=== PATIENT | female | born 2000 | race Caucasian/White ===

== ENCOUNTER 2018-07-05 09:41 | Emergency (ER) | payer OTHER, SELFPAY ==
[2018-07-05] VITALS (7 sets, daily range): BP systolic 123–131; BP diastolic 75–77; PULSE 58–71; RESP 16–18; TEMP 36.6; O2SAT 98–100; BMI 24.9
--- NOTE | 2018-07-05 09:55 | ED.RN ---
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 PT HAS SEVERE EATING DISORDER. PT PURGING. PT WORSTED WINDER STATES MULTIPLE FAMILY ISSUES. STATES PT WILL NOT FORMULATE A PLAN BECAUSE PT WILL THEN CARRY IT OUT SOON IT IS FORMULATED
[2018-07-05 10:21] LABS: Absolute Lymphocyte Count 0.98 X10^3/ul (0.83-4.51); Absolute Neutrophil Count 2.6 X10^3/uL (2.0-7.7); Basophil# 0.03 X10^3/uL; Basophil% 0.8 % (0-1); Eosinophil# 0.05 X10^3/uL; Eosinophils% 1.3 % (0-5); Hematocrit 39.5 % (37-47); Lymphocyte # 0.98 X10^3/ul (4.0); Lymphocyte % 24.9 % (19-41); Mean Corp Hgb Conc 32.9 g/gl (32-36); Mean Corpuscular Hgb 31.6 pg (27.0-32.0); Mean Corpuscular Volume 96.1 fL (81-99); Mean Platelet Vol. 8.8 fl (6.2-12.0); Monocyte# 0.32 X10^3/uL; Monocyte% 8.1 % (0-10); Neutrophil # 2.55 X10^3/uL (2.7-7.7); Neutrophil % 64.9 % (47-70); Platelet Count 346 K/mm3 (150-450); RBC Distribution Width SD 42.1 fl (35.1-43.9); Red Blood Count 4.11 M/mm3 (4.2-5.4); White Blood Count 3.9 K/mm3 (4.4-11.0)
[2018-07-05 10:25] LABS: POSITIVE COUNT NO; POSITIVE DIFFERENTIAL NO; POSITIVE MORPHOLOGY NO
[2018-07-05 10:43] LABS: Anion Gap 7 (5-15); BUN 8 mg/dL (7-18); BUN/Creat Ratio 11.1 RATIO (10-20); Calcium,Total 9.3 mg/dL (8.5-10.1); Chloride 107 mmol/L (98-107); Creatinine, Serum 0.72 mg/dL (0.55-1.02); EST Glomerular Filtration Rate 109 mL/min (>60); Est Glom Filt Rate - Afr Amer 132 mL/min (>60); Estimated Creatinine Clearance 107.63 ml/min; Glucose 108 mg/dL (74-106); Potassium 3.7 mmol/L (3.5-5.1); Sodium Level 140 mmol/L (136-145)
[2018-07-05 10:47] LABS: Alcohol, Blood (Medical)-Serum < 3.0 mg/dL
[2018-07-05 10:48] LABS: Pregnancy, Serum, hCG Quali. NEGATIVE Negative (0-9 Nonpreg)
[2018-07-05 11:16] LABS: Amphetamine Urine VISTA NEGATIVE (<1000 ng/mL); Barbiturate Urine VISTA NEGATIVE (< 200 ng/mL); Benzodiazepine Urine VISTA NEGATIVE (< 200 ng/mL); Cocaine Urine VISTA NEGATIVE (< 300 ng/mL); Ecstacy Urine VISTA NEGATIVE (< 500 ng/mL); Methadone Urine VISTA NEGATIVE (< 300 ng/mL); PCP Urine VISTA NEGATIVE (< 25 ng/mL); THC Urine VISTA NEGATIVE (< 50 ng/mL); Vista UDS pH Range 7
--- NOTE | 2018-07-05 11:21 | NURSING ---
SUZY, CRISIS, AWARE OF PATIENT
--- NOTE | 2018-07-05 12:17 | NURSING ---
CRISIS IN ROOM WITH PATIENT
--- NOTE | 2018-07-05 15:34 | ED.VISSUMM ---
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 She states that she has been increasingly depressed since yesterday and is having thoughts but denies a specific plan. She reports a history of an eating disorder and feels that this is getting somewhat worse. Physical Examination: She has a flat affect. Mood is depressed. Thought content is normal. She does appear to have good insight into her problem. Test Results: Medical screening labs within normal limits. Emergency Department Course and Treatment: Her wellness health coach arrived and provided further history at the bedside with her permission. She has been apparently increasingly depressed for several weeks and has a poor family support system. He is very concerned that she will complete suicide. She then reported further thoughts of suicide and divided much more information to the mental health professional here with crisis. We all agreed that she would benefit from inpatient psychiatric treatment at this time. He is agreeable to be transferred for treatment. Treatment Plan: Transfer to an inpatient psychiatric facility Disposition: Transfer, stable Impression: Initial encounter suicidal ideation, initial encounter major depression This note was generated with [employer] dictation software. It may contain incorrect words, spelling, and punctuation that were not noted in review of the chart prior to signing ED Disposition - Plan for ED Patient: Chief Complaint: Suicidal Referrals: Care Physician,No Primary [Primary Care Provider] -
--- OUTSIDE RECORDS SUMMARY | 2018-08-28 15:06 | XMS RPT_ITS ---
:2000 Author Organization OHIP Care Team Providers Name Role Phone Wyatt Archer Attending Unavailable Primay Care Physicia, No Primary Care Unavailable NADIYA PALMA JR Referring Unavailable NADIYA PALMA JR Attending Unavailable Tristan Malikate Admitting Unavailable Ursula Malik Attending Unavailable [facility] Primary Care Unavailable Wyatt Case Admitting Unavailable Wyatt Case Attending Unavailable [facility] Referring Unavailable [facility] Primary Care Unavailable Brie Escamilla, Dr. Juanito Ferro Attending Unavailable Brie Escamilla, Dr. Juanito Ferro Attending Unavailable Dr. Juanito Baird Jr Attending Unavailable Dr. Juanito Baird Jr Attending Unavailable Brie Escamilla, Dr. Juanito Ferro Attending Unavailable PROBLEMS PROBLEMS DATE TYPE CONDITION / CODE ATTENDING STATUS SOURCE 10/07/2017 Active Pain, unspecified NA Active [facility] / R52(ICD-10) [facility] [place] Repository PROCEDURES PROCEDURES No Procedure Records FoundRESULTS RESULTS EMERGENCY DEPARTMENT Observed: 07/05/2018 Status: F Source: [place] SUMMARY 3:36 PM REPOSITORY [facility] Medical Records Department [address] [place] [address] Emergency Department Summary 07/05/18 1534 MR#: [id number] Acct: [id number] Name: DARLENE MARTINEZ Rep #: [id number] : 2000 18 From: Josesito Archer MD PCP: Care Physician, No Primary Status: REG ER - ER Visit Summary Date of Service: 07/05/18 Chief Complaint: Suicidal ideation History of Present Illness: 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 She states that she has been increasingly depressed since yesterday and is having thoughts but denies a specific plan. She reports a history of an eating disorder and feels that this is getting somewhat worse. Physical Examination: She has a flat affect. Mood is depressed. Thought content is normal. She does appear to have good insight into her problem. Test Results: Medical screening labs within normal limits. Emergency Department Course and Treatment: Her men's basketball coach arrived and provided further history at the bedside with her permission. She has been apparently increasingly depressed for several weeks and has a poor family support system. He is very concerned that she will complete suicide. She then reported further thoughts of suicide and divided much more information to the mental health professional here with crisis. We all agreed that she would benefit from inpatient psychiatric treatment at this time. He is agreeable to be transferred for treatment. Treatment Plan: Transfer to an inpatient psychiatric facility Disposition: Transfer, stable Impression: Initial encounter suicidal ideation, initial encounter major depression This note was generated with [employer] dictation software. It may contain incorrect words, spelling, and punctuation that were not noted in review of the chart prior to signing ED Disposition - Plan for ED Patient: Chief Complaint: Suicidal Referrals: Care Physician,No Primary [Primary Care Provider] - What to do if you have Problems For any increased pain, shortness of breath, bleeding, nausea or vomiting, chest pain, or any unexpected problems, contact your Primary Care Provider. Call [facility] ([phone]) or report to the closest Emergency Room. Call 911 if necessary. 07/05/18 1536 <Electronically signed by Josesito Archer MD> Date Josesito Archer MD Cosigner Signature (If Indicated): Date CC: No Primary Care Physician URINE DRUG SCREEN Collected: 07/05/2018 Status: F Source: [place] ([place]) 11:00 AM REPOSITORY TYPE CODE TESTS RESULT OUT OF RANGE REFERENCE UNITS LAB L505.0075 TO BE Normal CONFIRMED Result Comment: CONFIRMATORY TESTING FOR ALL POSITIVE URINE DRUG SCREEN RESULTS WILL ONLY BE SENT OUT UPON PHYSICIAN ORDER. VISTA Urine Drug Screen methods provide only preliminary analytical test results. A more specific alternate chemical method must be used in order to obtain a confirmed analytical result. Gas chromatography/mass spectrometery (GC/MS) is the preferred confirmatory method. Clinical consideration and professional judgement should be applied to any drug of abuse test result, particularly when preliminary positive results are used. URINE TCA TESTING MUST BE ORDERED SEPARATELY. USE TEST MNEMONIC: [facility] LAB L505.5005 VISTA UDS PH 7 Normal LAB L505.5015 <1000 ng/mL AMPHETAMINES Normal NEGATIVE LAB L505.5025 < 200 ng/mL BARBITIURATES Normal NEGATIVE LAB L505.5035 < 200 ng/mL BENZODIAZIPINE Normal NEGATIVE LAB L505.5045 < 300 ng/mL COCAINE Normal NEGATIVE LAB L505.5055 < 500 ng/mL ECSTACY Normal NEGATIVE LAB L505.5065 < 300 ng/mL METHADONE Normal NEGATIVE LAB L505.5075 < 300 ng/mL OPIATES Normal NEGATIVE LAB L505.5085 < 25 ng/mL PCP Normal NEGATIVE LAB L505.5095 < 50 ng/mL THC Normal NEGATIVE Performed By: #### L505.5000 #### [facility] [address] [place], [place], [id number] CBC W/DIFF, AUTOMATED Collected: 07/05/2018 Status: F Source: [place] 10:12 AM REPOSITORY TYPE CODE TESTS RESULT OUT OF RANGE REFERENCE UNITS LAB L100.1000 4.4-11.0 K/mm3 Low WBC 3.9 LAB L100.1200 4.2-5.4 M/mm3 Low RBC 4.11 LAB L100.1300 12.0-15.0 g/dl Normal HGB 13.0 LAB L100.1400 37-47 % Normal HCT 39.5 LAB L100.1500 81-99 fL Normal MCV 96.1 LAB L100.1600 27.0-32.0 pg Normal MCH 31.6 LAB L100.1700 32-36 g/gl Normal MCHC 32.9 LAB L100.1810 11.6-14.6 % Normal RDW CV 12.0 LAB L100.1820 35.1-43.9 fl Normal RDW SD 42.1 LAB L100.1900 150-450 K/mm3 Normal PLT 346 LAB L100.2000 6.2-12.0 fl Normal MPV 8.8 LAB L100.2100 47-70 % Normal NEUT% 64.9 LAB L100.2200 19-41 % Normal LY% 24.9 LAB L100.2300 0-10 % Normal MONO% 8.1 LAB L100.2400 0-5 % Normal EO% 1.3 LAB L100.2500 0-1 % Normal BASO% 0.8 LAB L100.2550 0.0-0.9 % Normal IM GRAN % 0.000 Result Comment: IG% - Immature Granulocytes (promyelocytes, myelocytes and metamyelocytes) > 1% indicates that a LEFT SHIFT is Present. LAB L100.2620 2.0-7.7 X10 3/uL Normal Absolute Neut 2.6 LAB L100.2720 0.83-4.51 X10 3/ul Normal Absolute Lymph 0.98 Performed By: #### L100.0100 #### [facility] [place], [address] BASIC METABOLIC Collected: 07/05/2018 Status: F Source: [facility] PROFILE (BMP) 10:12 AM REPOSITORY TYPE CODE TESTS RESULT OUT OF RANGE REFERENCE UNITS LAB L501.0100 74-106 mg/dL High GLU 108 Result Comment: Fasting Glucose result from 100 to 125 mg/dL suggests IMPAIRED HOMEOSTASIS per A.D.A. criteria. Please note revised GLUCOSE reference range effective 2017. LAB L501.1000 7-18 mg/dL Normal BUN 8 LAB L501.1100 0.55-1.02 mg/dL Normal CREAT,SERUM 0.72 Result Comment: The validity of the calculated GFR AND GFRAA in patients over 70 years has not been determined. Clinical correlation is essential. LAB L501.1110 >60 mL/min Normal EST GFR 109 Result Comment: Non- GFR Calc LAB L501.1115 >60 mL/min Normal EST GFR - AA 132 Result Comment: GFR Calc LAB L501.1255 ml/min Normal Estimated CRCL 107.63 LAB L501.1300 10-20 RATIO BUN/CRE Normal 11.1 LAB L501.2200 8.5-10 mg/dL .1 CA Normal 9.3 LAB L501.5300 136-14 mmol/L 5 NA Normal 140 LAB L501.5600 3.5-5. mmol/L 1 K Normal 3.7 LAB L501.5900 98-107 mmol/L CL Normal 107 LAB L501.6100 21.0-3 mmol/L 2.0 CO2 Normal 26.0 LAB L501.6200 5-15 GAP Normal 7 Performed By: #### L500.2500 #### [facility] [address] [facility] [place], [place], [id number] ALCOHOL, BLOOD Collected: 07/05/2018 Status: F Source: [place] ([facility])-SERUM 10:12 AM REPOSITORY TYPE CODE TESTS RESULT OUT OF RANGE REFERENCE UNITS LAB L501.9100 mg/dL Normal SERUM < 3.0 ETOH Result Comment: The serum:whole blood ethanol ratio is approximately 1.14 and varies slightly with hematocrit. Medical Alcohol reference interval and critical value in non-tolerant individuals; 50 - 100 Impairment 100 Intoxication 100 - 250 Severe Poisoning 250 - 400 Deep/possible fatal coma Performed By: #### L501.9100 #### [facility] [address] [place], [place], [id number] ,SERUM,HCG QUALI. Collected: Status: F Source: [place] 07/05/2018 10:12 AM REPOSITORY TYPE CODE TESTS RESULT OUT OF REFERENCE UNITS RANGE LAB L700.6700 =>Qualitative mIU/mL Normal HCG Qual < 1 triggr LAB L700.7000 0-9 Nonpreg Negative Normal HCGSQUAL NEGATIVE Performed By: #### L700.6800 #### [facility] Alberto [facility] [address] [place], [address] UA COMPLETE Collected: 04/15/2018 Status: F Source: JEW 7:55 PM [facility] REPOSITORY TYPE CODE TESTS RESULT OUT OF RANGE REFERENCE UNITS LAB 88023267( Yellow LOINC) Normal UA Color Colorless LAB 64565913( Clear LOINC) Normal UA Clarity Clear LAB 02304563( Negative LOINC) Normal UA Glucose Negative LAB 79252092( Negative LOINC) Normal UA Bili Negative LAB 45930775( Negative LOINC) UA Ketones 1+ Abnormal LAB 08682989( 1.003-1.030 LOINC) Low UA Spec Grav 1.002 LAB 37984198( 4.6-8.0 LOINC) Normal UA pH 6.0 LAB 29654878( Negative LOINC) Normal UA Protein Negative LAB 20769891( mg/dL LOINC) Normal UA Urobilinogen Negative LAB 16755624( Negative LOINC) Normal UA Nitrite Negative LAB 64821434( Negative LOINC) Normal UA Blood Negative LAB 26256517( Negative LOINC) Normal UA Leuk Est Negative LAB 49971438( 0-5 /HPF LOINC) Normal UA WBC 0-5 LAB 97854123( None /HPF LOINC) UA Bacteria Abnormal Trace Performed By: #### [id number] #### JEREMY Urinalysis Automated Subsection [address] [place] [address] U BHCG QLT Collected: 04/15/2018 Status: F Source: JEW 7:55 PM [facility] REPOSITORY TYPE CODE TESTS RESULT OUT OF RANGE REFERENCE UNITS LAB 4868167(LALIT Neg NC) Normal U beta Neg hCG Ql Performed By: #### [id number] #### JEREMY Urinalysis Manual [address] [place] [address] CBC W/ AUTO DIFF Collected: 04/15/2018 Status: F Source: JEW 7:49 [facility] REPOSITORY TYPE CODE TESTS RESULT OUT OF RANGE REFERENCE UNITS LAB 41665887(L 3.6-11.0 E3/mcL OINC) Normal WBC 9.4 LAB 29615888(L 3.90-5.40 E6/mcL OINC) Normal RBC 4.07 LAB 02921699(L 12.0-16.0 G/DL OINC) Normal Hgb 13.5 LAB 53624446(L 36.0-48.0 % OINC) Normal Hct 39.9 LAB 94842099(L 11.5-14.5 % OINC) Normal RDW 12.6 LAB 04591287(L 27.0-31.0 pg OINC) High MCH 33.2 LAB 66971771(L 33.0-37.0 G/DL OINC) Normal MCHC 33.9 LAB 55176355(L 78.0-100.0 fL OINC) Normal MCV 98.2 LAB 40318782(L 7.4-11.0 fL OINC) Normal MPV 7.4 LAB 16412646(L 130-400 E3/mcL OINC) Normal Platelet 358 Performed By: #### [id number] #### [facility] [address] [place] [address] AUTO DIFF Collected: 04/15/2018 Status: F Source: JEW 7:49 [facility] REPOSITORY Order Comment: Order Added by Discern Expert. TYPE CODE TESTS RESULT OUT OF RANGE REFERENCE UNITS LAB 60907157(L 37.0-75.0 % OINC) High Neutro Auto 79.5 LAB 47812709(L 20.0-55.0 % OINC) Low Lymph Auto 11.4 LAB 33312239(L 0.0-10.0 % OINC) Normal Anson Auto 7.7 LAB 09450362(L 0.0-11.0 % OINC) Normal Eos Auto 0.1 LAB 48859866(L 0.0-2.0 % OINC) Normal Basophil Auto 1.3 LAB 40410532(L 1.4-6.5 E3/mcL OINC) High Neutro 7.4 Absolute LAB 15464854(L 1.2-3.4 E3/mcL OINC) Low Lymph Absolute 1.1 LAB 67016909(L 0.0-0.7 E3/mcL OINC) Normal Anson Absolute 0.7 LAB 85724630(L 0.0-0.7 E3/mcL OINC) Normal Eos Absolute 0.0 LAB 10233305(L 0.0-0.2 E3/mcL OINC) Normal Basophil 0.1 Absolute Performed By: #### [id number] #### [facility] [address] [id number] BMP Collected: 04/15/2018 Status: F Source: JEW 7:49 PM [facility] REPOSITORY TYPE CODE TESTS RESULT OUT OF RANGE REFERENCE UNITS LAB 94172947(L 70-99 mg/dL OINC) High Glucose Lvl 105 LAB 60392663(L 7-18 mg/dL OINC) BUN Normal 7 LAB 5683571(LO 0.6-1.3 mg/dL INC) Normal Creatinine 0.8 LAB 66801648(L 5.4-30.0 ratio OINC) Normal BUN/Creat Ratio 8.8 LAB 55353108(L 8.4-10.2 mg/dL OINC) Calcium Normal Lvl 9.2 LAB 61992738(L 136-145 mEq/L OINC) Sodium Normal Lvl 136 LAB 17589117(L 3.5-5.1 mEq/L OINC) Low Potassium Lvl 3.3 LAB 23419768(L 98-107 mEq/L OINC) Chloride Normal 102 LAB 92567240(L 24.0-30.0 mEq/L OINC) Low CO2 22.8 Performed By: #### [id number] #### [facility] [place] [address] EGFR Collected: 04/15/2018 Status: F Source: JEW 7:49 PM [facility] REPOSITORY Order Comment: Order added by Discern Expert. TYPE CODE TESTS RESULT OUT OF RANGE REFERENCE UNITS LAB 73341098(LO mL/min/1.73 INC) m2 Normal eGFR >60 LAB 43140531(LO mL/min/1.73 INC) m2 Normal eGFR AA >60 Performed By: #### [id number] #### [facility] [place] [address] MAGNESIUM Collected: 04/15/2018 Status: F Source: JEW 7:49 PM [facility] REPOSITORY TYPE CODE TESTS RESULT OUT OF RANGE REFERENCE UNITS LAB 13934094(L 1.7-2.8 mg/dL OINC) Normal Magnesium 1.8 Performed By: #### [id number] #### [facility] [address] [id number] CNOV Observed: 10/07/2017 Status: COMPLETED Source: [place] 9:45 AM [facility] [place] REPOSITORY Office Visit (ORTHEU) DARLENE MARTINEZ ([id number]) 2000 F Date Time Provider Department 10/07/17 9:45 AM NADIYA PALMA JR During your visit today, we recorded the following information about you: Nadiya Palma Jr, MD 10/07/2017 10:09 AM Signed Ortho Shoulder Follow Up Note Darlene Martinez is a 17 year old year old female who presents to the office today follow up Right shoulder. She goes to [employer] [facility] does swimming noted increased shoulder pain in Fall 2016 was given a cortisone injection last week of Aug 2017 with some relief for about 2 weeks. She states she is done with swimming for this season. [place] team doctor wanted her to get re evaluated trainers at school think she may have shoulder tendonitis. 09/29/2016 Right shoulder arthroscopic SLAP repair Denies any fevers, chills, SOB, chest pain. Physical exam: Unfortunately her scapulas all shifted around at this point and when she is standing straight it's clearly protracted it's more anterior slower than the other side. She really didn't have any impingement findings rotator cuff strength was good negative Clarendon's no instability to sulcus anterior posterior translation. Skin looks good she's neurovascularly intact distally there is no lymphedema. Assessment: I think what happened over the season is her scab stabilizing program and strengthening program, went by the way side so her shoulder started to shift around she's also got some significant curvature to her chromium so that leaves less space between the tip of the acromion and the rotator cuff and I think she's had bursitis all season long and every swimmer with its division 3 revision 1 we'll have changes in the cuff tendon over time as he gets wrong out from the repetitive overhead-type activities. However when you his scapula gets protracted you can't externally rotates her shoulder as well because is not in a good position and so you pinched more than normal. At this point I want to trainers to really work on improving her scapular stabilizing strength into trying get that scapula back work along's. I would like her to back off on her swimming at this point in really focus on really try to get the parascapular muscles really strong. 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*INVALID FOR* Right shoulder pain [M25.511] INVALID FOR* Shoulder stiffness [M25.619] INVALID FOR* Right arm weakness [R29.898] INVALID FOR* Encounter Status:Closed by NADIYA PALMA JR, MD on 10/07/17 XR SHLDR >/=3V Observed: 10/07/2017 Status: F Source: [place] AP/JESSICA AP/OTHR RT 9:41 AM [facility] [place] REPOSITORY * * *Final Report* * * DATE OF EXAM: Oct 07 2017 9:41AM EOX 5253 - XR SHLDR >/=3V AP/JESSICA AP/OTHR RT / PROCEDURE REASON: Pain, unspecified * * * * Physician Interpretation * * * * EXAMINATION: XR SHLDR >/=3V AP/JESSICA AP/OTHR RT HISTORY: PT. C/O RIGHT SHOULDER PAIN. Pain, unspecified . TECHNIQUE: XR SHLDR >/=3V AP/JESSICA AP/OTHR RT Laterality: RIGHT Number of different views (projections): 4 M: XB_1 Comparison: None RESULT: The osseous structures are intact with no acute fracture or dislocation. Glenohumeral and acromioclavicular joint spaces are maintained. Subacromial space is maintained as well. IMPRESSION: NORMAL STUDY. Audio Visual Manager: PSCB Transcribe Date/Time: Oct 07 2017 10:08A Dictated by : AMERICO GERBER MD This examination was interpreted and the report reviewed and electronically signed by: AMERICO GERBER MD on Oct 07 2017 10:09AM EST [id number] Observed: 10/07/2017 Status: COMPLETED Source: [place] 9:12 AM [facility] REPOSITORY HNO ID: [id number] Author: Segundo Persaud Service: (none) Author Type: (none) Type: Progress Notes Filed: 10/07/2017 9:30 AM Note Text: Radiology Service Progress Note PATIENT NAME: Darlene Martinez DATE OF SERVICE: October 07, 2017 TIME: 9:12 AM PATIENT IDENTITY VERIFICATION COMPLETED USING TWO (2) METHODS: Patient confirmed name verbally and Date of . PATIENT GENDER DATA: Female. status: : No status: NO. PATIENT RELEVANT IMPLANT DATA REVIEWED: Not Applicable RADIOLOGY DEPARTMENT: General X-ray: Exam(s) Completed: Upper Extremity X-Ray(s): Shoulder, AP / TRUE AP / AXILLARY / SUPRA OUTLET right : PERIPHERAL IV DATA: Not applicable SIGNED BY: Segundo Persaud October 07, 2017 9:12 AM PROGRESS Observed: 10/06/2017 Status: COMPLETED Source: [place] 9:30 AM [facility] REPOSITORY HNO ID: [id number] Author: Nadiya Palma Jr. Service: (none) Author Type: Physician Type: Progress Notes Filed: 10/07/2017 10:09 AM Note Text: Ortho Shoulder Follow Up Note Darlene Martinez is a 17 year old year old female who presents to the office today follow up Right shoulder. She goes to [employer] does swimming noted increased shoulder pain in Fall 2016 was given a cortisone injection last week of Aug 2017 with some relief for about 2 weeks. She states she is done with swimming for this season. [place] team doctor wanted her to get re evaluated trainers at school think she may have shoulder tendonitis. 09/29/2016 Right shoulder arthroscopic SLAP repair Denies any fevers, chills, SOB, chest pain. Physical exam: Unfortunately her scapulas all shifted around at this point and when she is standing straight it's clearly protracted it's more anterior slower than the other side. She really didn't have any impingement findings rotator cuff strength was good negative Clarendon's no instability to sulcus anterior posterior translation. Skin looks good she's neurovascularly intact distally there is no lymphedema. Assessment: I think what happened over the season is her scab stabilizing program and strengthening program, went by the way side so her shoulder started to shift around she's also got some significant curvature to her chromium so that leaves less space between the tip of the acromion and the rotator cuff and I think she's had bursitis all season long and every swimmer with its division 3 revision 1 we'll have changes in the cuff tendon over time as he gets wrong out from the repetitive overhead-type activities. However when you his scapula gets protracted you can't externally rotates her shoulder as well because is not in a good position and so you pinched more than normal. At this point I want to trainers to really work on improving her scapular stabilizing strength into trying get that scapula back work along's. I would like her to back off on her swimming at this point in really focus on really try to get the parascapular muscles really strong. 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 Nadiya Palma Jr, MD Electronic Signature ALLERGIES ALLERGIES DATE TYPE / CODE NAME / CODE REACTION SEVERITY SOURCE 07/05/2018 Drug No Known Unknown [place] Allergy/416 Allergies/E602110 Community 031124(SNOM 388(RXNORM) Hospital ED CT) Repository Drug/634074 No Known Hoahaoism 003(SNOMED Medication [facility] CT) Allergies System Repository Drug NO KNOWN [facility] Class/61831 ALLERGIES [place] 1003(SNOMED Repository CT) ENCOUNTERS ENCOUNTERS ADMIT/DISCHARGE ACCOUNT NUMBER ADMITTING ENCOUNTER LOCATION SOURCE CLASS 07/09/2018 [id number] Ambulatory [address] [place] [address] Repository 07/08/2018 [id number] Ambulatory [address] [place] [address] Repository 07/07/2018 [id number] Ambulatory [address] [place] [address] Repository 07/06/2018 [id number] Ambulatory [address] [place] [address] Repository 07/05/2018/ [id number] Emergency [place] 018 [facility] ding:ED Repository 07/05/2018 [id number] Ambulatory [address] [facility] Repository 04/22/2018/ [id number] [place], Ambulatory [facility] 018 [facility] ding:[facility] [place] Repository 04/22/2018 [id number] Ambulatory [address] [facility] Repository 04/15/2018/ [id number] [place], Emergency [facility] 018 [facility] ding:[facility] EDRoom: [place] Repository 04/15/2018 [id number] Ambulatory [address] [facility] Repository 10/07/2017/ [id number] Ambulatory [address] [place] Repository 10/07/2017/ [id number] Ambulatory [address] [place] Repository PAYERS PAYERS ENCOUNTER GUARANTOR PAYER SUBSCRIBER SOURCE 07/09/2018 [facility]: Insurance:[facility] [id number] [facility] Repository [place], Number: [id number]: [id number] Date:Plan Name:Health () 07/09/2018 [facility] Insurance:[facility]: [facility] [id number] Repository Number: [address] [id number] [place] Date:Plan Name:Health [id number]: () 07/08/2018 DARLENE Primary [facility]: Insurance:[facility] [id number] [facility] Repository [place], Number: [id number]: [id number] Date:Plan Name:Health () 07/08/2018 [facility] Insurance:Medical [facility]: [facility] [id number] Repository Number: [address] [id number] [place] Date:Plan Name:Health [id number]: () 07/07/2018 [facility]: [facility]: Insurance:[facility] [id number] [facility] [place], Number: [id number]: [id number] Date:Plan Name:Health () 07/07/2018 [facility] Insurance:Medical [facility]: [facility] [id number] Repository Number: E [address] [id number] [facility] [place] Date:Plan Name:[facility] [id number]: () 07/06/2018 [facility]: [facility]: Insurance:[facility] [id number] [facility] Repository [place], Number: [id number]: [id number] Date:Plan Name:Health () 07/05/2018 DARLENE Primary ROHITH Abrams [id number] Insurance:MEDICAL [facility]: [facility] 270 [facility] [id number] [id number]: Number: Repository [id number] () Date:[id number] [address] [address]SH: 07/05/2018 Secondary WANDA Abrams Insurance:SELF PAY [facility] Number: Effective Repository Date:2018-07-05 07/05/2018 [facility]: [facility] Number: [id number] [address]ository [address] [place] [id number]: Date:Plan Name:[facility], [place] [id number]: (HP) (HP) 04/22/2018 DARLENE E Primary ROHITH GUZMANOB: Erika GUZMANOB: Insurance:Medical [id number] [facility] [address] [place], [place] Repository [place] Date:2018-04-21 [id number]: [id number]: [id number] Name:[facility] ()Tel: (000) () [address], [place] [address] () [address]RO: 04/22/2018 [facility]: [facility]: Insurance:Medical [id number] [address]ository [address], Number: [id number]: [id number] Date:Plan Name:Health () 04/22/2018 [facility] Insurance:[facility]: [facility] [id number] Repository Number: [id number] [place] Date:Plan Name:Health [id number]: () 04/15/2018 DARLENE Cade Primary ROHITH GUZMANOB: Hoahaoism NINOSKA: Insurance:Medical [id number] [facility] MutualPolicy Number: [id number] [place], [place] Repository [place] Date:2018-04-15 [id number]: [id number]: [id number] Name:[place])Tel: (163) () [address], [place] [address] () [address]CL: 04/15/2018 [facility] E [facility] Number: [id number] Repository Effective Date: [place], [place] Name:[facility] [place] [id number]: [phone]: () [phone] ()
== END 2018-07-05 17:30 ==
LOC: ED 10:13
PROVIDERS: Emergency Provider Emergency Medicine
DX: R45.851 Suicidal ideations (principal); F32.9 Major depressive disorder, single episode, unspecified; Z79.899 Other long term (current) drug therapy
CPT/HCPCS: 36415; 80048; 80307; 80320; 84703; 85025; 99284; A4216; G0480